=== PATIENT | female | born 1955 | race African-American/Black ===

== ENCOUNTER 2019-04-13 18:02 | Emergency (ER) | payer SELFPAY ==
[2019-04-13 20:04] LABS: Urine Blood NEGATIVE (NEG); Urine Glucose NEGATIVE (NEG); Urine Protein NEGATIVE (NEG); Urine Specific Gravity <1.005 (1.005-1.030); Urine pH 6.5 (5.0-7.0)
--- NOTE | 2019-04-13 20:10 | RAD REPORT ---
EXAM DESCRIPTION: Razat Single View04/13/2019 7:52 pm CLINICAL HISTORY: cough COMPARISON: none FINDINGS: The lungs appear clear of acute infiltrate. The heart is borderline enlarged Upper lobe vessels are prominent indicative pulmonary venous hypertension. A central venous line has its tip in superior vena cava
[2019-04-13 20:55] LABS: Absolute Lymphocytes (CBC) 1.7 K/uL (0.7-4.9); Basophils % 1.2 % (0-1.3); Hematocrit 37.2 % (36.0-45.0); MPV 8.2 fL (7.6-11.3); RBC Red Blood Cell Count 4.22 M/uL (3.86-4.86)
[2019-04-13 21:17] LABS: ALT/SGPT 15 U/L (12-78); AST/SGOT 16 U/L (15-37); Albumin 3.4 g/dL (3.4-5.0); Alkaline Phosphatase 104 U/L (45-117); BUN Blood Urea Nitrogen 23 mg/dL (7-18); Bicarbonate 29 mmol/L (21-32); Bilirubin Direct < 0.1 mg/dL (0-0.2); Bilirubin Total 0.4 mg/dL (0.2-1.0); Glucose Level 79 mg/dL (74-106); Magnesium 2.4 mg/dL (1.8-2.4); Potassium 3.7 mmol/L (3.5-5.1); Protein, Total 7.4 g/dL (6.4-8.2); Sodium Level 145 mmol/L (136-145); Troponin (Emerg Dept Use Only) < 0.02 ng/mL (0.0-0.045)
--- NOTE | 2019-04-13 21:36 | ER ---
Nurse's Notes [facility] Name: Susan Rodriguez Age: 63 yrs Sex: Female : 1955 Arrival Date: 04/13/2019 Time: 18:06 Bed 28 Private MD: Diagnosis: Hypoglycemia, unspecified;Type 1 diabetes mellitus Presentation: 04/13 18:06 Presenting complaint: EMS states: friend called 911 from [facility] because pt was aa5 slurring, upon scene arrival FSBG read "low" after administration of dextrose x 1 amp FSBG 44, pt became A\\T\\O x 4 with clear speech. Pt currently A\\T\\O x 4. 18:06 Transition of care: patient was not received from another setting of care. Onset of aa5 symptoms was April 13, 2019. Risk Assessment: Do you want to hurt yourself or someone else? Patient reports no desire to harm self or others. Initial Sepsis Screen: Does the patient meet any 2 criteria? No. Patient's initial sepsis screen is negative. Does the patient have a suspected source of infection? No. Patient's initial sepsis screen is negative. Care prior to arrival: IV initiated. 20 GA, in the left wrist, Glucose check: 44. 18:06 Acuity: ANDREW 3 aa5 18:06 Method Of Arrival: EMS: [facility] aa5 Historical: - Allergies: 18:06 No Known Allergies; aa5 - PMHx: 18:06 Diabetes - IDDM; Hypertension; acid reflux; aa5 - PSHx: 18:06 Right mastectomy; aa5 - Immunization history:: Flu vaccine is up to date. - Social history:: Smoking status: Patient/guardian denies using tobacco. - Ebola Screening: : No symptoms or risks identified at this time. - Family history:: not pertinent. Screenin:36 Abuse screen: Denies threats or abuse. Nutritional screening: No deficits noted. aa5 Tuberculosis screening: No symptoms or risk factors identified. Fall Risk None identified. Assessment: 18:07 General: Appears comfortable, Behavior is calm, cooperative. Pain: Denies pain. Neuro: aa5 Level of Consciousness is awake, alert, obeys commands, Oriented to person, place, time, situation, Financial Processing Clerk are equal bilaterally Moves all extremities. Speech is normal, Facial symmetry appears normal, Pupils are PERRLA, Denies weakness dizziness, headache. Cardiovascular: Heart tones S1 S2 present Rhythm is regular. Respiratory: Airway is patent Respiratory effort is even, unlabored, Respiratory pattern is regular, symmetrical. GI: Abdomen is round Bowel sounds present X 4 quads. Abd is soft and non tender X 4 quads. : No signs and/or symptoms were reported regarding the genitourinary system. EENT: No signs and/or symptoms were reported regarding the EENT system. Derm: Skin is dry, Skin is normal, Skin temperature is warm. Musculoskeletal: Range of motion: intact in all extremities. 18:08 Reassessment: Pt states "I took my insulin this morning and I ate breakfast but I aa5 didn't eat lunch". Pt given orange juice and sandwich, pt tolerating well. . 18:25 Reassessment: Pt ate 100% of sandwich, tolerated well. . aa5 19:30 Reassessment: Patient appears in no apparent distress at this time. Patient and/or tr5 family updated on plan of care and expected duration. Pain level reassessed. Patient is alert, oriented x 3, equal unlabored respirations, skin warm/dry/pink. 20:30 Reassessment: Patient appears in no apparent distress at this time. No changes from tr5 previously documented assessment. Patient and/or family updated on plan of care and expected duration. Pain level reassessed. Patient is alert, oriented x 3, equal unlabored respirations, skin warm/dry/pink. Vital Signs: 18:07 BP 166 / 75; Pulse 78; Resp 16 S; Temp 98.2(TE); Pulse Ox 98% on R/A; Weight 104.33 kg aa5 (R); Height 5 ft. 2 in. (157.48 cm) (R); Pain 0/10; 21:17 BP 151 / 80; Pulse 77; Resp 16; Pulse Ox 99% on R/A; tr5 18:07 Body Mass Index 42.07 (104.33 kg, 157.48 cm) aa5 ED Course: 18:06 Patient arrived in ED. ca1 18:06 Arm band placed on Patient placed in an exam room, on a stretcher. aa5 18:06 Patient has correct armband on for positive identification. Placed in gown. Bed in low aa5 position. Call light in reach. Side rails up X2. hall monitor on. Pulse ox on. NIBP on. 18:15 Joe Nesbitt MD is Attending Physician. [facility] 18:16 Laura Mir, RN is Primary Nurse. aa5 18:27 Triage completed. aa5 19:00 Report given to ANANTH El. aa5 19:49 XRAY Chest (1 view) In Process Unspecified. EDMS 20:43 Lab(s) recollected, by me, sent to lab. Inserted saline lock: 22 gauge in left lt1 antecubital area, using aseptic technique. 21:35 Mert Kapoor MD is Referral Physician. [facility] 21:56 No provider procedures requiring assistance completed. IV discontinued. tr5 Administered Medications: No medications were administered Point of Care Testing: Blood Glucose: 18:10 Blood Glucose: 71 mg/dL; aa5 Ranges: Outcome: 21:35 Discharge ordered by . emily 21:56 Discharged to home ambulatory. tr5 21:56 Condition: stable 21:56 Discharge instructions given to patient, Instructed on discharge instructions, follow up and referral plans. Demonstrated understanding of instructions, follow-up care. 21:59 Patient left the ED. tr5 Signatures: Dispatcher [employer] EDKS Joe Nesbitt MD MD cha Calderon, Audri, RN RN aa5 Becky Swann RN RN [address], [place] [address] Nikko Sanchez RN RN tr5 Corrections: (The following items were deleted from the chart) 18:28 18:06 Presenting complaint: EMS states: friend called 911 from [facility] because pt aa5 was slurring, upon scene arrival FSBG read "low" after administration of dextrose x 1 amp FSBG 44. aa5
--- NOTE | 2019-04-13 21:36 | EDPHYS ---
Physician Documentation [facility] Name: Susan Rodriguez Age: 63 yrs Sex: Female : 1955 Arrival Date: 04/13/2019 Time: 18:06 Bed 28 Private MD: JAIMEE Physician Joe Nesbitt HPI: 04/13 19:11 This 63 yrs old Black Female presents to ER via EMS with complaints of Low Blood Sugar. emily 19:11 The patient or guardian reports hypoglycemia. Onset: The symptoms/episode emily began/occurred just prior to arrival. Associated signs and symptoms: Pertinent positives: ams, weakness. Current symptoms: In the emergency department the patient's symptoms are unchanged from the initial presentation. The patient has not experienced similar symptoms in the past. Historical: - Allergies: 18:06 No Known Allergies; aa5 - PMHx: 18:06 Diabetes - IDDM; Hypertension; acid reflux; aa5 - PSHx: 18:06 Right mastectomy; aa5 - Immunization history:: Flu vaccine is up to date. - Social history:: Smoking status: Patient/guardian denies using tobacco. - Ebola Screening: : No symptoms or risks identified at this time. - Family history:: not pertinent. ROS: 19:11 Constitutional: Negative for fever, chills, and weight loss, Eyes: Negative for injury, emily pain, redness, and discharge, ENT: Negative for injury, pain, and discharge, Neck: Negative for injury, pain, and swelling, Cardiovascular: Negative for chest pain, palpitations, and edema, Respiratory: Negative for shortness of breath, cough, wheezing, and pleuritic chest pain, Abdomen/GI: Negative for abdominal pain, nausea, vomiting, diarrhea, and constipation, Back: Negative for injury and pain, : Negative for injury, bleeding, discharge, and swelling, MS/Extremity: Negative for injury and deformity, Skin: Negative for injury, rash, and discoloration, Psych: Negative for depression, anxiety, suicide ideation, homicidal ideation, and hallucinations, Allergy/Immunology: Negative for hives, rash, and allergies, Hematologic/Lymphatic: Negative for swollen nodes, abnormal bleeding, and unusual bruising. 19:11 Neuro: Positive for altered mental status, weakness. 19:11 Endocrine: Positive for Exam: 19:11 Constitutional: This is a well developed, well nourished patient who is awake, alert, emily and in no acute distress. Head/Face: Normocephalic, atraumatic. Eyes: Pupils equal round and reactive to light, extra-ocular motions intact. Lids and lashes normal. Conjunctiva and sclera are non-icteric and not injected. Cornea within normal limits. Periorbital areas with no swelling, redness, or edema. ENT: Nares patent. No nasal discharge, no septal abnormalities noted. Tympanic membranes are normal and external auditory canals are clear. Oropharynx with no redness, swelling, or masses, exudates, or evidence of obstruction, uvula midline. Mucous membranes moist. Neck: Trachea midline, no thyromegaly or masses palpated, and no cervical lymphadenopathy. Supple, full range of motion without nuchal rigidity, or vertebral point tenderness. No Meningismus. Chest/axilla: Normal chest wall appearance and motion. Nontender with no deformity. No lesions are appreciated. Cardiovascular: Regular rate and rhythm with a normal S1 and S2. No gallops, murmurs, or rubs. Normal PMI, no JVD. No pulse deficits. Respiratory: Lungs have equal breath sounds bilaterally, clear to auscultation and percussion. No rales, rhonchi or wheezes noted. No increased work of breathing, no retractions or nasal flaring. Abdomen/GI: Soft, non-tender, with normal bowel sounds. No distension or tympany. No guarding or rebound. No evidence of tenderness throughout. Back: No spinal tenderness. No costovertebral tenderness. Full range of motion. Female : Normal external genitalia. Skin: Warm, dry with normal turgor. Normal color with no rashes, no lesions, and no evidence of cellulitis. MS/ Extremity: Pulses equal, no cyanosis. Neurovascular intact. Full, normal range of motion. Neuro: Awake and alert, GCS 15, oriented to person, place, time, and situation. Cranial nerves II-XII grossly intact. Motor strength 5/5 in all extremities. Sensory grossly intact. Cerebellar exam normal. Normal gait. Psych: Awake, alert, with orientation to person, place and time. Behavior, mood, and affect are within normal limits. Vital Signs: 18:07 BP 166 / 75; Pulse 78; Resp 16 S; Temp 98.2(TE); Pulse Ox 98% on R/A; Weight 104.33 kg aa5 (R); Height 5 ft. 2 in. (157.48 cm) (R); Pain 0/10; 21:17 BP 151 / 80; Pulse 77; Resp 16; Pulse Ox 99% on R/A; tr5 18:07 Body Mass Index 42.07 (104.33 kg, 157.48 cm) aa5 MDM: 18:15 Patient medically screened. [facility] 19:15 Data reviewed: vital signs, nurses notes, lab test result(s), EKG, radiologic studies. [facility] 12/ 18:27 Order name: Glucose, Ancillary Testing; Complete Time: 20:04 EDUT 04/13 18:57 Order name: Urine Dipstick--Ancillary (enter results); Complete Time: 20:20 04/13 19:11 Order name: Basic Metabolic Panel; Complete Time: 21:35 [facility] 04/13 19:11 Order name: CBC with Diff; Complete Time: 21:17 [facility] 04/13 19:11 Order name: LFT's; Complete Time: 21:35 [facility] 04/13 19:11 Order name: Magnesium; Complete Time: 21:35 [facility] 04/13 19:09 Order name: Diet Heart Healthy; Complete Time: 19:10 [facility] 04/13 19:11 Order name: Troponin (emerg Dept Use Only); Complete Time: 21:35 [facility] 04/13 19:11 Order name: XRAY Chest (1 view); Complete Time: 20:20 [facility] 04/13 19:11 Order name: EKG; Complete Time: 19:12 [facility] 04/13 19:11 Order name: Cardiac monitoring; Complete Time: 20:05 [facility] 04/13 19:11 Order name: EKG - Nurse/Tech; Complete Time: 20:38 [facility] 04/13 20:51 Order name: Glucose, Ancillary Testing; Complete Time: 20:54 EDUT 04/13 20:55 Order name: Diet Regular; Complete Time: 20:55 [facility] 04/13 19:11 Order name: IV Saline Lock; Complete Time: 20:01 [facility] 04/13 19:11 Order name: Labs collected and sent; Complete Time: 20:01 [facility] 04/13 19:11 Order name: O2 Per Protocol; Complete Time: 19:17 [facility] 04/13 19:11 Order name: O2 Sat Monitoring; Complete Time: 19:17 [facility] 04/13 19:11 Order name: PO challenge: juice; Complete Time: 20:02 [facility] 04/13 20:20 Order name: Blood Glucose Level; Complete Time: 20:37 [facility] Administered Medications: No medications were administered Point of Care Testing: Blood Glucose: 18:10 Blood Glucose: 71 mg/dL; aa5 Ranges: Critical Glucose Levels:Adult <50 mg/dl or >400 mg/dl <40 mg/dl or >180 mg/dl Disposition: 04/13/19 21:35 Discharged to Home. Impression: Hypoglycemia, unspecified, Type 1 diabetes mellitus. - Condition is Stable. - Discharge Instructions: Type 1 Diabetes Mellitus, Diagnosis, Adult, Hypoglycemia, Diabetes Mellitus and Food, Hypoglycemia, [id number], Type 1 Diabetes Mellitus, Self Care, Adult, Type 1 Diabetes Mellitus, Diagnosis, Adult, [id number], Type 1 Diabetes Mellitus, Self Care, Adult, [id number]-[id number]. - Medication Reconciliation Form, Thank You Letter, Antibiotic Education, Prescription Opioid Use form. - Follow up: Private Physician; When: 2 - 3 days; Reason: Recheck today's complaints, Continuance of care, Re-evaluation by your physician. Follow up: Mert Kapoor; When: 2 - 3 days; Reason: Recheck today's complaints, Re-evaluation by your physician. - Problem is new. - Symptoms have improved. Signatures: Dispatcher [employer] EDJoe Sexton MD MD cha Calderon, Audri RN RN aa5 Nikko Sanchez RN RN tr5 Corrections: (The following items were deleted from the chart) 21:59 21:35 04/13/2019 21:35 Discharged to Home. Impression: Hypoglycemia, unspecified; Type tr5 1 diabetes mellitus. Condition is Stable. Discharge Instructions: Type 1 Diabetes Mellitus, Diagnosis, Adult, Hypoglycemia, Diabetes Mellitus and Food, Hypoglycemia, [id number], Type 1 Diabetes Mellitus, Self Care, Adult, Type 1 Diabetes Mellitus, Diagnosis, Adult, Jdqh-[id number], Type 1 Diabetes Mellitus, Self Care, Adult, Itun-qu-[id number]. Forms are Medication Reconciliation Form, Thank You Letter, Antibiotic Education, Prescription Opioid Use. Follow up: Private Physician; When: 2 - 3 days; Reason: Recheck today's complaints, Continuance of care, Re-evaluation by your physician. Follow up: Mert Kapoor; When: 2 - 3 days; Reason: Recheck today's complaints, Re-evaluation by your physician. Problem is new. Symptoms have improved. emily
[2019-04-13 23:20] VITALS: BP 151/80; TEMP 98.2; O2SAT 99
--- NOTE | 2019-04-14 06:20 | EKG ---
Test Date: 2019-04-13 Test Time: 20:23:46 [employer] Director: TR MEASUREMENT RESULTS: Intervals: Rate: 79 SC: 192 QRSD: 102 QT: 396 QTc: 454 [place]: P: SC: 192 QRS: 178 T: 197 INTERPRETIVE STATEMENTS: Suspect arm lead reversal, interpretation assumes no reversal Normal sinus rhythm Lateral infarct, age undetermined ST & T wave abnormality, consider inferior ischemia Abnormal ECG No previous ECG available for comparison Electronically Signed On 04-14-19 06:19:31 [employer] by Chano Hernandez
== END 2019-04-13 21:59 | disposition home or self-care (01) ==
LOC: ER 18:02
DX: E10.649 Type 1 diabetes mellitus with hypoglycemia without coma (principal); I10 Essential (primary) hypertension
CPT/HCPCS: 36415; 71045; 80048; 80076; 81003; 82947; 83735; 84484; 85025; 93005; 99284

== ENCOUNTER 2019-04-22 12:49 | Emergency (ER) | payer OTHER, SELFPAY ==
--- OUTSIDE RECORDS SUMMARY | 2019-04-22 12:51 | XMS REPORT ---
:1955 [facility] Address [address] [place] [id number] Care Team Providers Name Role Phone Unavailable Unavailable Unavailable Problems This patient has no known problems. Allergies, Adverse Reactions, Alerts This patient has no known allergies or adverse reactions. Medications This patient has no known medications.
--- NOTE | 2019-04-22 15:03 | ER ---
Nurse's Notes [facility] Name: Susan Rodriguez Age: 63 yrs Sex: Female : 1955 Arrival Date: 04/22/2019 Time: 12:53 Bed 2 Private MD: Diagnosis: Hypoglycemia, unspecified Presentation: 04/22 13:03 Presenting complaint: EMS states: Pt reports she slid off of the toilet to the ground. ss Upon EMS arrival to scene, patient was found to be disoriented. No obvious injuries. BGL read 37. 160 mL of D10 given IV en route to ED. Transition of care: patient was not received from another setting of care. Onset of symptoms is unknown. Risk Assessment: Do you want to hurt yourself or someone else? Patient reports no desire to harm self or others. Initial Sepsis Screen: Does the patient meet any 2 criteria? No. Patient's initial sepsis screen is negative. Does the patient have a suspected source of infection? No. Patient's initial sepsis screen is negative. Care prior to arrival: SEE TRIAGE NOTE. 13:03 Method Of Arrival: EMS: [facility] ss 13:03 Acuity: ANDREW 2 ss Historical: - Allergies: 13:30 No Known Allergies; jl7 - Home Meds: 13:30 atorvastatin 80 mg oral tab 1 tab once daily [Active]; folic acid 1 mg Oral tab 1 tab jl7 once daily [Active]; lisinopril 40 mg Oral tab 1 tab once daily [Active]; Novolin 70/30 [place] Sub-Q [Active]; tramadol 50 mg Oral tab [Active]; - PMHx: 13:06 acid reflux; Diabetes - IDDM; Hypertension; ss 13:30 High Cholesterol; jl7 - PSHx: 13:06 Right mastectomy; ss - Immunization history:: Adult Immunizations unknown. - Social history:: Smoking status: Patient/guardian denies using tobacco. - Ebola Screening: : Patient denies exposure to infectious person Patient denies travel to an Ebola-affected area in the 21 days before illness onset. Screenin:07 Abuse screen: Denies threats or abuse. Denies injuries from another. Nutritional ss screening: No deficits noted. Tuberculosis screening: No symptoms or risk factors identified. 13:30 Fall Risk None identified. jl7 Assessment: 13:07 General: Appears in no apparent distress. comfortable, Behavior is calm, cooperative, ss is laughing and joking with ED/ EMS staff. Pain: Denies pain. Neuro: Level of Consciousness is awake, alert, obeys commands, Oriented to person, place, time, situation. Respiratory: Airway is patent Respiratory effort is even, unlabored, Respiratory pattern is regular, symmetrical. EENT: Oral mucosa is moist. Derm: Skin is pink, warm \\T\\ dry. Injury Description: Abrasion sustained to jase size abrasion to L forearm noted. No bleeding noted at this time. 13:14 Reassessment: juice given, awaiting for diet tray. ss 13:39 Reassessment: Diet Tray given. ss 14:37 Reassessment: Patient appears in no apparent distress at this time. pt requests to be sg admited. pt states " I dont know why they dont just keep me, cause Im just going to be back in here later tonight. I need to stay so I can have my medications all set aside for me for what Im supposed to take at the right time. Vital Signs: 13:06 BP 117 / 78; Pulse 79; Resp 16; Temp 97.7(A); Pulse Ox 100% on R/A; Weight 106.14 kg; Height 5 ft. 2 in. (157.48 cm); Pain 0/10; 13:34 BP 145 / 68; Pulse 80; Resp 16 S; Pulse Ox 100% on R/A; jl7 14:00 BP 116 / 54; Pulse 90; Resp 16 S; Pulse Ox 98% on R/A; jl7 14:45 BP 124 / 67; Pulse 82; Resp 16 S; Pulse Ox 100% on R/A; jl7 13:06 Body Mass Index 42.80 (106.14 kg, 157.48 cm) ED Course: 12:53 Patient arrived in ED. ss 13:01 Mannie Yan PA is PHCP. jr8 13:01 Rock Mitchell MD is Attending Physician. jr8 13:04 Suresh Villaseñor RN is Primary Nurse. jl7 13:05 Triage completed. ss 13:06 Arm band placed on right wrist. ss 13:34 Patient has correct armband on for positive identification. Bed in low position. Call jl7 light in reach. Side rails up X 1. Pulse ox on. NIBP on. Warm blanket given. 14:57 EKG done, by optical lab technician. reviewed by Mannie OLIVER. at1 15:15 No provider procedures requiring assistance completed. Patient did not have IV access jl7 during this emergency room visit. Administered Medications: No medications were administered Point of Care Testing: Blood Glucose: 13:10 Blood Glucose: 46 mg/dL; jl7 Ranges: Outcome: 15:01 Discharge ordered by MD. jr8 15:15 Discharged to home ambulatory, with friend. jl7 15:15 Condition: stable 15:15 Discharge instructions given to patient, friend, Instructed on discharge instructions, follow up and referral plans. Demonstrated understanding of instructions, follow-up care. 15:19 Patient left the ED. sg Signatures: Obed Rivera RN RN Demetria Sanders RN RN Mannie Phelan PA PA jr8 Mary Carrillo, leather skinner EKG Tat1 Suresh Villaseñor RN RN jl7 Corrections: (The following items were deleted from the chart) 34 13:30 General: Appears in no apparent distress. uncomfortable, Behavior is calm, jl7 cooperative, appropriate for age, jl7 :34 13:30 Pain: Denies pain. jl7 jl7 :34 13:30 EENT: No signs and/or symptoms were reported regarding the EENT system. jl7 jl7 13:34 13:30 Neuro: Level of Consciousness is awake, alert, obeys commands, Oriented to jl7 person, place, time, situation, jl7 :34 13:30 Cardiovascular: Patient's skin is warm and dry. jl7 jl7 :34 13:30 Respiratory: Airway is patent Respiratory effort is even, unlabored, Respiratory jl7 pattern is regular, symmetrical, jl7 :34 13:30 GI: No signs and/or symptoms were reported involving the gastrointestinal system. jl7 jl7 :34 13:30 : No signs and/or symptoms were reported regarding the genitourinary system. [id number] :34 13:30 Derm: Skin is dry, Skin is normal, Skin temperature is warm jl7 jl7 13:34 13:30 Musculoskeletal: No signs and/or symptoms reported regarding the musculoskeletal jl7 system. jl7
--- NOTE | 2019-04-22 15:03 | EDPHYS ---
Physician Documentation [facility] Name: Susan Rodriguez Age: 63 yrs Sex: Female : 1955 Arrival Date: 04/22/2019 Time: 12:53 Bed 2 Private MD: ED Physician Rock Mitchell HPI: 04/22 14:32 This 63 yrs old Black Female presents to ER via EMS with complaints of Low Blood Sugar. jr8 14:32 The patient or guardian reports decreased level of consciousness, hypoglycemia. Onset: jr8 The symptoms/episode began/occurred acutely, today. Associated signs and symptoms: Pertinent positives: None. Current symptoms: In the emergency department the patient's symptoms have improved, moderately. The patient has experienced similar episodes in the past, a few times. The patient has not recently seen a physician. Patient stated that she has not been eating as much recently. Stated that she has also still been dosing herself with insulin without checking her BGL routinely. Patient was found minimally responsive at home with a blood glucose reading LOW . Historical: - Allergies: 13:30 No Known Allergies; jl7 - Home Meds: 13:30 atorvastatin 80 mg oral tab 1 tab once daily [Active]; folic acid 1 mg Oral tab 1 tab jl7 once daily [Active]; lisinopril 40 mg Oral tab 1 tab once daily [Active]; Novolin 70/30 [place] Sub-Q [Active]; tramadol 50 mg Oral tab [Active]; - PMHx: 13:06 acid reflux; Diabetes - IDDM; Hypertension; ss 13:30 High Cholesterol; jl7 - PSHx: 13:06 Right mastectomy; ss - Immunization history:: Adult Immunizations unknown. - Social history:: Smoking status: Patient/guardian denies using tobacco. - Ebola Screening: : Patient denies exposure to infectious person Patient denies travel to an Ebola-affected area in the 21 days before illness onset. ROS: 14:32 Eyes: Negative for injury, pain, redness, and discharge, ENT: Negative for injury, jr8 pain, and discharge, Neck: Negative for injury, pain, and swelling, Cardiovascular: Negative for chest pain, palpitations, and edema, Respiratory: Negative for shortness of breath, cough, wheezing, and pleuritic chest pain, Abdomen/GI: Negative for abdominal pain, nausea, vomiting, diarrhea, and constipation, Back: Negative for injury and pain, MS/Extremity: Negative for injury and deformity, Skin: Negative for injury, rash, and discoloration, Neuro: Negative for headache, weakness, numbness, tingling, and seizure. Exam: 14:32 Eyes: Pupils equal round and reactive to light, extra-ocular motions intact. Lids and jr8 lashes normal. Conjunctiva and sclera are non-icteric and not injected. Cornea within normal limits. Periorbital areas with no swelling, redness, or edema. ENT: Nares patent. No nasal discharge, no septal abnormalities noted. Tympanic membranes are normal and external auditory canals are clear. Oropharynx with no redness, swelling, or masses, exudates, or evidence of obstruction, uvula midline. Mucous membranes moist. Neck: Trachea midline, no thyromegaly or masses palpated, and no cervical lymphadenopathy. Supple, full range of motion without nuchal rigidity, or vertebral point tenderness. No Meningismus. Cardiovascular: Regular rate and rhythm with a normal S1 and S2. No gallops, murmurs, or rubs. Normal PMI, no JVD. No pulse deficits. Respiratory: Lungs have equal breath sounds bilaterally, clear to auscultation and percussion. No rales, rhonchi or wheezes noted. No increased work of breathing, no retractions or nasal flaring. Abdomen/GI: Soft, non-tender, with normal bowel sounds. No distension or tympany. No guarding or rebound. No evidence of tenderness throughout. Back: No spinal tenderness. No costovertebral tenderness. Full range of motion. Skin: Warm, dry with normal turgor. Normal color with no rashes, no lesions, and no evidence of cellulitis. MS/ Extremity: Pulses equal, no cyanosis. Neurovascular intact. Full, normal range of motion. Neuro: Awake and alert, GCS 15, oriented to person, place, time, and situation. Cranial nerves II-XII grossly intact. Motor strength 5/5 in all extremities. Sensory grossly intact. Cerebellar exam normal. Normal gait. Vital Signs: 13:06 BP 117 / 78; Pulse 79; Resp 16; Temp 97.7(A); Pulse Ox 100% on R/A; Weight 106.14 kg; ss Height 5 ft. 2 in. (157.48 cm); Pain 0/10; 13:34 BP 145 / 68; Pulse 80; Resp 16 S; Pulse Ox 100% on R/A; jl7 14:00 BP 116 / 54; Pulse 90; Resp 16 S; Pulse Ox 98% on R/A; jl7 14:45 BP 124 / 67; Pulse 82; Resp 16 S; Pulse Ox 100% on R/A; jl7 13:06 Body Mass Index 42.80 (106.14 kg, 157.48 cm) ss MDM: 13:01 Patient medically screened. [facility] 14:32 Data reviewed: vital signs, nurses notes, lab test result(s), and as a result, I will jr8 discharge patient. Data interpreted: Pulse oximetry: on room air is 100 %. Interpretation: normal. Counseling: I had a detailed discussion with the patient and/or guardian regarding: the historical points, exam findings, and any diagnostic results supporting the discharge/admit diagnosis, lab results, the need for outpatient follow up, a family practitioner, to return to the emergency department if symptoms worsen or persist or if there are any questions or concerns that arise at home. ED course: Patient at baseline. Counseled her on glucose monitoring and insulin use. Glucose has stabilized. Will d/c home to f/u with PCP . 04/22 13:13 Order name: Glucose, Ancillary Testing; Complete Time: 13:17 EDAR 04/22 14:48 Order name: Glucose, Ancillary Testing; Complete Time: 14:51 EDAR 04/22 13:02 Order name: Diet Ada 2000 Doug; Complete Time: 13:03 [facility] 04/22 13:02 Order name: Glucose Level; Complete Time: 13:02 [facility] 04/22 14:32 Order name: FSBS; Complete Time: 14:37 sg Administered Medications: No medications were administered Point of Care Testing: Blood Glucose: 13:10 Blood Glucose: 46 mg/dL; jl7 Ranges: Critical Glucose Levels:Adult <50 mg/dl or >400 mg/dl <40 mg/dl or >180 mg/dl Disposition: 15:58 Co-signature as Attending Physician, Rock Mitchell MD I agree with the assessment and kdr plan of care. Disposition: 04/22/19 15:01 Discharged to Home. Impression: Hypoglycemia, unspecified. - Condition is Stable. - Discharge Instructions: Hypoglycemia, Blood Glucose Monitoring, Adult. - Medication Reconciliation Form, Thank You Letter, Antibiotic Education, Prescription Opioid Use form. - Follow up: Private Physician; When: 2 - 3 days; Reason: Recheck today's complaints, Continuance of care, Re-evaluation by your physician. - Problem is new. - Symptoms have improved. Signatures: Obed Rivera, RN RN sg Rock Mitchell MD MD [facility] Demetria Pryor RN RN ss Roszak, Josh, PA PA jr8 Suresh Villaseñor RN RN jl7 Corrections: (The following items were deleted from the chart) 15:19 15:01 04/22/2019 15:01 Discharged to Home. Impression: Hypoglycemia, unspecified. sg Condition is Stable. Forms are Medication Reconciliation Form, Thank You Letter, Antibiotic Education, Prescription Opioid Use. Follow up: Private Physician; When: 2 - 3 days; Reason: Recheck today's complaints, Continuance of care, Re-evaluation by your physician. Problem is new. Symptoms have improved. jr8
[2019-04-22 15:27] VITALS: TEMP 97.7; O2SAT 100
[2019-04-22 15:29] VITALS: BP 145/68
--- NOTE | 2019-04-23 07:08 | EKG ---
Test Date: 2019-04-22 Test Time: 14:50:25 Strategy Manager: JESUS MEASUREMENT RESULTS: Intervals: Rate: 79 NM: 180 QRSD: 90 QT: 392 QTc: 449 [place]: P: 34 NM: 180 QRS: -37 T: 8 INTERPRETIVE STATEMENTS: Normal sinus rhythm Left axis deviation Abnormal ECG Compared to ECG 04/13/2019 20:23:46 Left-axis deviation now present Myocardial infarct finding no longer present ST (T wave) deviation no longer present Possible ischemia no longer present Electronically Signed On 04-23-19 07:06:57 [employer] REPAIR PERSON by Ari Suresh
== END 2019-04-22 15:19 | disposition home or self-care (01) ==
LOC: ER 12:49
DX: E11.649 Type 2 diabetes mellitus with hypoglycemia without coma (principal); I10 Essential (primary) hypertension; Z79.4 Long term (current) use of insulin; Z90.11 Acquired absence of right breast and nipple
CPT/HCPCS: 82947; 93005; 99284

== ENCOUNTER 2021-02-28 08:29 | Day surgery (SDC) | payer OTHER ==
[2021-02-28] MEDS ORDERED: NA CHLORIDE 0.9% 1,000 ML ONE (09:37)
[2021-02-28] MEDS ORDERED: CEFAZOLIN/NS 1gm 1 GM/50 ML BAG ONE (09:37)
[2021-02-28] MEDS ORDERED: MIDAZOLAM HCL 2 MG/2 ML INJ ONE (10:14)
[2021-02-28] MEDS ORDERED: propofoL 200 MG/20 ML VIAL IV ONE (10:14)
[2021-02-28] MEDS ORDERED: LIDOCAINE 2% MPF 5 ML VIAL ONE (10:15)
[2021-02-28] MEDS ORDERED: BUPIVACAINE 0.25% PF 10 ML VIAL ONE (10:25)
--- NOTE | 2021-02-28 10:37 | P.OP ---
Preoperative diagnosis: Attention to Chemotherapy Port Postoperative diagnosis: Attention to Chemotherapy Port Primary procedure: Removal of Chemotherapy Port Anesthesia: GETA + Local Estimated blood loss: <1cc Specimen: catheter for ID only Findings: chemo port Complications: None Transferred to: Recovery Room Condition: Good
[2021-02-28] MEDS ORDERED: BUPIVACA 0.5%/EPI 0.0005%/PF 30 ML VIAL ONE (10:46)
[2021-02-28] MEDS ORDERED: LIDOCAINE 1% W/EPI 1:100,000 MDV 20 ML VIAL ONE (11:04)
[2021-02-28] MEDS ORDERED: CODEINE 30MG/APAP 300MG TAB ONE (11:19)
[2021-02-28 11:47] VITALS: BP 155/87; TEMP 97.4; O2SAT 94
--- NOTE | 2021-02-28 20:55 | OP ---
Date of Procedure: 02/28/2021 Surgeon: Joby Mart MD, Preoperative Diagnosis: chemotherapy port. Postoperative Diagnosis: chemotherapy port. Procedure Performed: Removal of chemotherapy port from the left subclavian position. Anesthesia: MAC plus local with 0.5% Marcaine without epinephrine and 1% lidocaine with epinephrine. Specimen: Catheter for ID only. Findings: Chemotherapy port. Complications: None. Disposition: The patient was transferred to recovery room in good condition. Procedure In Detail: After informed consent was obtained, the patient was brought to the operating r oom, prepped and draped in the usual sterile fashion after adequate anesthesia achieved. I anestheti zed the area of the left chest wall overlying the previous incision from a placement of left subclavi an chemotherapy port. I anesthetized down to subcutaneous tissues. I then made an incision in the s alison previous incision down to subcutaneous tissues and used electrocautery to dissect down to the carli motherapy port. I circumferentially grasped, elevated and removed the previously placed sutures secu ring the catheter to the chest wall with Metzenbaum scissors. I then grasped, elevated and removed a ll the scar tissue and the sac circumferentially around the chemotherapy port and brought the chemoth erapy port into the field, placed the patient in steep Trendelenburg position, removed the catheter, held pressure for approximately 3 minutes. I placed a single [id number] 3-0 Vicryl suture throu gh the insertion tract and secured at this point, and then the patient placed in head up position. N o bleeding was appreciated at this point. I irrigated the cavity copiously at this point and closed the deep dermal plane using interrupted 3-0 Vicryl sutures and the skin was closed with 4-0 Monocryl in a running fashion. Dermabond placed over top. The patient tolerated the procedure well without e vidence of complication and transferred to PACU in good condition. All counts were correct at the en d of the case. AYDIN/CONRADL Voice ID: [id number] Report ID: [id number]
== END 2021-02-28 11:58 | disposition home or self-care (01) ==
LOC: OR 08:29
PROVIDERS: ATTEND Surgery
PROC: 0JPT0WZ Removal of Totally Implantable Vascular Access Device from Trunk Subcutaneous Tissue and Fascia, Open Approach (ICD-10-PCS; principal; 2021-02-28 10:00)
DX: Z85.3 Personal history of malignant neoplasm of breast (principal); Z92.21 Personal history of antineoplastic chemotherapy; Z20.822 Contact with and (suspected) exposure to COVID-19
CPT/HCPCS: 82947 ×2; 88300; 36589; U0003; J2704; J2250; J0690; J7030

== ENCOUNTER 2021-03-28 08:26 | Day surgery (SDC) | payer OTHER ==
[2021-03-28] MEDS ORDERED: NA CHLORIDE 0.9% 1,000 ML ONE (09:22)
[2021-03-28] MEDS ORDERED: propofoL 200 MG/20 ML VIAL IV ONE ×3 (11:23)
[2021-03-28] MEDS ORDERED: LIDOCAINE 1% MPF 2 ML AMPULE ONE (11:23)
[2021-03-28] MEDS ORDERED: EPINEPHRINE/PF 1 MG/ML AMP ONE (11:31)
[2021-03-28] MEDS ORDERED: EPHEDRINE SULF 50 MG/ML VIAL ONE (11:38)
--- NOTE | 2021-03-28 12:07 | ENDO RPT ---
[address], [address] COLONOSCOPY PROCEDURE REPORT EXAM DATE: 03/28/2021 PATIENT NAME: Susan Rodriguez MR #: [id number] BIRTHDATE: 1955 ATTENDING: Joby Mart DR STATUS: outpatient INSURANCE BILLER: Shireen Rodriguez RN and Jennyfer Rodriguez RN INDICATIONS: The patient is a 65 yr old Female here for a colonoscopy due to colon cancer screening PROCEDURE PERFORMED: Screening Colonoscopy and Colonoscopy MEDICATIONS: Per Anesthesia. ESTIMATED BLOOD LOSS: None CONSENT: The patient understands the risks and benefits of the procedure and understands that these risks include, but are not limited to: sedation, allergic reaction, infection, perforation and/or bleeding. Alternative means of evaluation and treatment include, among others: physical exam, x-rays, and/or surgical intervention. The patient elects to proceed with this endoscopic procedure. DESCRIPTION OF PROCEDURE: During intra-op preparation period all mechanical medical equipment was checked for proper function. Hand hygiene and appropriate measures for infection prevention was taken. Procedure, possible complications, alternatives including, but not limited to possibility of bleeding, perforation, tear, infection, sepsis, need for surgery, need for blood transfusion, were explained to the patient. After the risks, benefits and alternatives of the procedure were thoroughly explained, Informed consent was verified, confirmed and timeout was successfully executed by the treatment team. The patient was placed in the left lateral position. A digital rectal exam was performed and revealed internal hemorrhoids and A digital rectal exam was performed and revealed external hemorrhoids. After appropriate level of anesthesia, the scope was passed. The EC-[id number] ([id number]) endoscope was introduced through the anus and advanced to the cecum, which was identified by both the appendix and ileocecal valve. The quality of the prep was poor. The instrument was then slowly withdrawn as the colon was fully examined. Scope withdrawal time was 12 minutes. COLON FINDINGS: Small internal and external hemorrhoids were found. Retroflexed views revealed no abnormalities. The scope was then completely withdrawn from the patient and the procedure terminated. ADVERSE EVENTS: There were no complications. IMPRESSIONS: Small internal and external hemorrhoids RECOMMENDATIONS: 1. avoid NSAIDS 2. fiber rich diet 3. Monitor for any evidence of rectal bleeding. 4. yearly hemoquant 5. hemorrhoidal hygiene RECALL: Return in 5 year(s) for Colonoscopy. Poor Prep - Recommend 2 Day prep on next colonoscopy Joby Mart DR eSigned: Joby Mart DR 03/28/2021 12:06 PM cc: CPT CODES: ICD9 CODES: PATIENT NAME: Susan Rodriguez MR#: [id number]
[2021-03-28 13:36] VITALS: TEMP 98.1
[2021-03-28 13:37] VITALS: O2SAT 100
[2021-03-28 13:38] VITALS: BP 143/71
== END 2021-03-28 12:55 | disposition home or self-care (01) ==
LOC: OR 08:26
PROVIDERS: ATTEND Surgery
PROC: 0DJD8ZZ Inspection of Lower Intestinal Tract, Via Natural or Artificial Opening Endoscopic (ICD-10-PCS; principal; 2021-03-28 10:45)
DX: Z12.11 Encounter for screening for malignant neoplasm of colon (principal); Z85.3 Personal history of malignant neoplasm of breast; E11.9 Type 2 diabetes mellitus without complications; Z20.822 Contact with and (suspected) exposure to COVID-19; K64.8 Other hemorrhoids; K64.4 Residual hemorrhoidal skin tags
CPT/HCPCS: 82947; U0003; J2704 ×2; J7030; G0121; J0171

== ENCOUNTER 2022-06-26 12:01 | Emergency (ER) | payer OTHER ==
--- OUTSIDE RECORDS SUMMARY | 2022-06-26 12:04 | XMS REPORT | Continuity of Care Document ---
:1955 Author Organization [facility] t Address [address] [place] [address] Care Team Providers Name Role Phone Albertina Brumfield Attending Clinician Unavailable Payal MACKEY Attending Clinician Unavailable Oracio Lucia Attending Clinician Unavailable Jessica Cortés Attending Clinician Unavailable STEPHANIE RAMIREZ Attending Clinician Unavailable Stephanie Ramirez MD Attending Clinician [phone] Payers Payer Name Policy Type Policy Number Effective Date Expiration Date Lamont [employer] [id number] 2018 O 00:00:00 [place] [id number] 2019 00:00:00 Problems This patient has no known problems. Allergies, Adverse Reactions, Alerts Allergy Allergy Status Severity Reaction(s) Onset Inactive Treating Comm ents Source Name Type Date Date Clinician NO KNOWN Drug Active [facility] Medications This patient has no known medications. Procedures This patient has no known procedures. Encounters Start End Encounter Admission Attending Care Care Encounter Source Date/Time Date/Time Type Type Clinicians Facility Department ID 2022-06-17 Outpatient MICHAELA BrumfieldLC STLMLC [id number] Common 13:23:01 Albertina 89518 [facility] 2022-06-04 Outpatient Payal MACKEY STLUIS STLMLC [id number] 2 Common 16:08:00 [id number] [facility] 2022-06-03 Outpatient Payal MACKEY STLUIS STLMLC [id number] 2 Common 16:35:02 [id number] [facility] 2022-04-30 Outpatient Mackey, Na STLMLC STL[facility]C [id number] 2 Common 14:23:02 [facility] 2022-04-15 Outpatient Mackey, Na STLMLC STL[facility]C [id number] 2 Common 14:51:01 [facility] 2022-02-21 Outpatient Mackey, Na STLMLC STL[facility]C [id number] 2 Common 09:29:01 [facility] 2021-08-01 Outpatient Mackey, Na STLMLC ST[facility]C [id number] 2 Common 10:02:01 [facility] 2021-07-19 Outpatient Mackey, Na STLMLC STL[facility]C [id number] 2 Common 10:50:01 [facility] 2021-06-06 Outpatient Mackey, Na STLMLC STL[facility]C [id number] 2 Common 14:31:57 [facility] 2021-06-06 Outpatient Mackey, Na STLMLC STL[facility]C [id number] 2 Common 14:31:19 [facility] 2021-06-06 Outpatient Mackey, Na STLMLC STL[facility]C [id number] 2 Common 14:26:47 [facility] 2021-06-06 Outpatient Mackey, Na STLMLC STL[facility]C [id number] 2 Common 14:23:49 [facility] 2021-06-06 Outpatient Mackey, Na STLMLC STL[facility]C [id number] 2 Common 13:57:31 [id number] [facility] 2021-06-06 Outpatient Mackey, Na STLMLC STL[facility]C [id number] 2 Common 13:54:28 [id number] [facility] 2021-06-06 Outpatient Mackey, Na STLMLC STL[facility]C [id number] 2 Common 13:51:40 [facility] 2021-06-06 Outpatient Mackey, Na STLMLC STL[facility]C [id number] 2 Common 13:47:08 [id number] [facility] 2021-06-06 Outpatient Mackey, Na STLMLC STL[facility]C [id number] 2 Common 13:46:25 [id number] [facility] 2021-06-06 Outpatient Mackey, Na STLMLC STL[facility]C [id number] 2 Common 13:22:27 [id number] [facility] 2021-06-06 Outpatient Mackey, Na STLMLC STL[facility]C [id number] 2 Common 12:51:15 [id number] [facility] 2021-06-06 Outpatient Mackey, Na STLMLC STL[facility]C [id number] 2 Common 12:30:06 [id number] [facility] 2021-06-06 Outpatient Mackey, Na STLMLC STL[facility]C [id number] 2 Common 12:29:13 [id number] [facility] 2021-06-06 Outpatient Mackey, Na STLMLC STL[facility]C [id number] 2 Common 12:20:17 [id number] [facility] 2021-06-06 Outpatient Mackey, Na STLMLC STL[facility]C [id number] 2 Common 12:18:38 [id number] [facility] 2021-06-06 Outpatient STLMLC STL[facility]C [id number] Common 12:15:56 [id number] [facility] 2021-06-06 Outpatient Khari, Kin STLMLC STL[facility]C [id number] 02 Common 12:11:29 [id number] [facility] 2021-06-06 Outpatient Khari Kin STLMLC STLMLC [id number] 02 Common 12:09:41 [id number] [facility] 2021-06-06 Outpatient Millender, STLMLC STL[facility]C [id number] Common 11:58:45 Jessica [id number] [facility] 2021-06-06 Outpatient Millender, STLMLC STL[facility]C [id number] Common 11:58:10 Jessica [id number] [facility] 2021-06-06 Outpatient Millender, STLMLC STL[facility]C [id number] Common 11:57:28 Jessica 40709 [facility] 2021-06-06 Outpatient Millender, STLMLC STLC [id number]- Common 11:52:52 Jessica 86096 [facility] 2021-06-06 Outpatient Macender, STLMLC STLC [id number]- Common 11:45:40 Jessica [id number] [facility] 2021-06-06 Outpatient Macender, STLMLC STLC [id number]- Common 11:45:27 Jessica [id number] [facility] 2021-06-06 Outpatient Macender, [facility] [id number] Common 11:44:43 Jessica [id number] [facility] 2021-06-06 Outpatient Milana, [facility] [id number] Common 11:25:05 Jessica 83571 [facility] 2020-06-19 2020-06-19 Outpatient R [facility] [id number] Univers 10:20:00 10:20:00 [facility] 2019-11-08 2019-11-08 [id number] [facility] 08:00:00 08:00:00 [facility] 2019-09-03 2019-09-03 [id number] [facility] 09:20:00 09:20:00 [facility] 2019-09-03 2019-09-03 [facility] [id number] 08:05:39 08:45:39 ne Visit Stephanie A Jessica [id number] [place] [id number] Professio [phone] [address]al [address] 2019-06-03 2019-06-03 [facility] [id number] 10:11:25 12:13:14 Visit Stephanie A Jessica [id number] [place] [id number] Professio [phone] [address]al [address] Building Results This patient has no known results.
--- NOTE | 2022-06-26 13:10 | RAD REPORT ---
EXAM DESCRIPTION: CT - Head C Spine Cap Wo Con - 06/26/2022 12:51 pm CLINICAL HISTORY: Trauma, head and neck injury. Chest, abdomen and pelvis pain. FALLS COMPARISON: No comparisons TECHNIQUE: CT head without contrast. CT cervical spine without contrast with coronal and sagittal reformatted images. CT chest, abdomen and pelvis with coronal and sagittal reformatted images of the spine. All CT scans are performed using dose optimization technique as appropriate and may include automated exposure control or mA/KV adjustment according to patient size. FINDINGS: CT HEAD WITHOUT CONTRAST: No intracranial hemorrhage, hydrocephalus or extra-axial fluid collection. No acute large vascular te rritory infarct. Chronic small vessel ischemic changes. The paranasal sinuses and mastoids are clear. The calvarium is intact. CT CERVICAL SPINE WITHOUT CONTRAST: No fracture or subluxation. The prevertebral soft tissues are normal in thickness.3 millimeters of anterolisthesis of C2 on C3. T race anterolisthesis of C3 on C4. Multilevel cervical spondylosis is present there are posterior disc osteophyte complexes the results in varying degrees of neural foraminal narrowing. There is probably moderate central spinal stenosis at C3-4 and C4-5. CT CHEST, ABDOMEN, PELVIS: Thorax: Chest Wall: No abnormal mass Right mastectomy. Lungs: No acute abnormality. Pleura: No effusions or pneumothorax. [place]/Mediastinum: No lymphadenopathy. Aorta/Pulmonary Arteries: Unremarkable Heart: Normal size. Multi-vessel coronary artery disease. Abdomen/Pelvis: Liver: No acute abnormality or suspicious lesions. Biliary: No biliary ductal dilatation. Stomach: No significant focal abnormality. Duodenum: No significant focal abnormality. Pancreas: No significant abnormality. Spleen: No significant abnormality. Adrenal: No suspicious lesions. Kidney/ureter: No hydronephrosis. No renal calculi. Retroperitoneum: No retroperitoneal adenopathy. Vascular: No aneurysm. Bowel: Normal appendix.. Peritoneum: No ascites or free air. Bladder: Grossly unremarkable. Reproductive: No adnexal masses. Bones: No acute fracture. Multilevel degenerative changes are present in the spine. Other: n/a IMPRESSION: 1. No acute intracranial abnormality. 2. No fracture or traumatic malalignment of the cervical spine. 3. No evidence of significant trauma to the chest, abdomen, or pelvis.
--- NOTE | 2022-06-26 13:24 | ER ---
Nurse's Notes [facility] Name: Susan Rodriguez Age: 66 yrs Sex: Female : 1955 Arrival Date: 06/26/2022 Time: 12:06 Bed IW2 Private MD: Diagnosis: Fall on same level from slipping, tripping and stumbling without subsequent striking against object Presentation: 06/26 12:14 Chief complaint: Patient states: she has been having multiple falls. patient reports ap3 she tripped on one of her rugs at home last night, patient states she also fell asleep on the couch last night and when she tried to get up to go to the bed in the middle of the night she fell but isn't sure what she tripped on. Patient also reports that she went to the restroom yesterday, but then had a hard time getting up off the commode. patient complains of mild soreness in her neck. patient denies taking any blood thinners. Coronavirus screen: At this time, the client does not indicate any symptoms associated with coronavirus-19. Ebola Screen: No symptoms or risks identified at this time. Initial Sepsis Screen: Does the patient meet any 2 criteria? No. Patient's initial sepsis screen is negative. Does the patient have a suspected source of infection? No. Patient's initial sepsis screen is negative. Risk Assessment: Do you want to hurt yourself or someone else? Patient reports no desire to harm self or others. Onset of symptoms was June 25, 2022. 12:14 Method Of Arrival: Wheelchair ap3 12:14 Acuity: ANDREW 3 ap3 Triage Assessment: 12:18 General: Appears in no apparent distress. Behavior is calm, cooperative, appropriate ap3 for age. Pain: Complains of pain in neck Pain currently is 1 out of 10 on a pain scale. Neuro: Level of Consciousness is awake, alert, obeys commands, Oriented to person, place, time, situation, Appropriate for age. Cardiovascular: Patient's skin is warm and dry. Respiratory: Airway is patent Respiratory effort is even, unlabored, Respiratory pattern is regular, symmetrical. Historical: - Allergies: 12:18 No Known Allergies; ap3 - PMHx: 12:18 acid reflux; Diabetes - IDDM; High Cholesterol; Hypertension; ap3 - Immunization history:: Client reports receiving the 2nd dose of the Covid vaccine. - Social history:: Smoking status: Patient denies any tobacco usage or history of. Screenin:19 [facility] ED Fall Risk Assessment (Adult) History of falling in the last 3 months, ap3 including since admission Yes- fall prone (multiple falls) (3 pts). Abuse screen: Denies threats or abuse. Nutritional screening: No deficits noted. Tuberculosis screening: No symptoms or risk factors identified. Vital Signs: 12:14 BP 137 / 83; Pulse 89; Resp 17; Temp 98.2; Pulse Ox 99% ; Weight 90.72 kg; ap3 ED Course: 12:06 Patient arrived in ED. rg4 12:18 Triage completed. ap3 12:20 Arm band placed on right wrist. ap3 12:23 Susie Grant PA-C is PHCP. sb4 12:23 Cj Rice MD is Attending Physician. sb4 13:23 Xiang Norris DO is Referral Physician. sb4 14:26 No provider procedures requiring assistance completed. Patient did not have IV access ap3 during this emergency room visit. 14:27 Patient has correct armband on for positive identification. ap3 Administered Medications: No medications were administered Medication: 12:20 VIS not applicable for this client. ap3 Outcome: 13:23 Discharge ordered by . sb4 14:26 Discharged to home via wheelchair. ap3 14:26 Condition: good 14:26 Discharge instructions given to patient, Instructed on discharge instructions, follow up and referral plans. Demonstrated understanding of instructions, follow-up care. 14:27 Patient left the ED. ap3 Signatures: Kyung Abdul rg4 Mary Jacome RN RN ap3 Susie Grant PA-C PA-C sb4
--- NOTE | 2022-06-26 13:24 | EDPHYS ---
Physician Documentation [facility] Name: Susan Rodriguez Age: 66 yrs Sex: Female : 1955 Arrival Date: 06/26/2022 Time: 12:06 Bed IW2 Private MD: ED Physician Cj Rice Historical: - Allergies: 06/26 12:18 No Known Allergies; ap3 - PMHx: 12:18 acid reflux; Diabetes - IDDM; High Cholesterol; Hypertension; ap3 - Immunization history:: Client reports receiving the 2nd dose of the Covid vaccine. - Social history:: Smoking status: Patient denies any tobacco usage or history of. Vital Signs: 12:14 BP 137 / 83; Pulse 89; Resp 17; Temp 98.2; Pulse Ox 99% ; Weight 90.72 kg; ap3 MDM: 12:43 Patient medically screened. sb4 06/26 12:28 Order name: Head C Spine Cap Wo Con CT sb4 06/26 13:11 Order name: CT; Complete Time: 13:11 EDMS Administered Medications: No medications were administered Disposition Summary: 06/26/22 13:23 Discharge Ordered Location: Home sb4 Problem: an ongoing problem sb4 Symptoms: are unchanged sb4 Condition: Stable sb4 Diagnosis - Fall on same level from slipping, tripping and stumbling without subsequent sb4 striking against object Followup: sb4 - With: Xiang Norris DO - When: 2 - 3 days - Reason: Further diagnostic work-up, Recheck today's complaints, Re-evaluation by your physician Discharge Instructions: - Discharge Summary Sheet sb4 - Fall Prevention in the Home, Adult, [id number] sb4 Forms: - Medication Reconciliation Form sb4 - Thank You Letter sb4 - Antibiotic Education sb4 - Prescription Opioid Use sb4 Signatures: Dispatcher [employer] EDMS Mary Jacome RN RN [email or web address] Susie Grant PA-C PA-C sb4
[2022-06-26 14:45] VITALS: BP 137/83; TEMP 98.2; O2SAT 99
== END 2022-06-26 14:27 | disposition home or self-care (01) ==
LOC: ER 12:01
DX: M54.2 Cervicalgia (principal); W01.0XXA Fall on same level from slipping, tripping and stumbling without subsequent striking against object, initial encounter; R29.6 Repeated falls; E11.9 Type 2 diabetes mellitus without complications; I10 Essential (primary) hypertension
CPT/HCPCS: 70450; 71250; 72125